=== PATIENT | female | born 1950 | race Caucasian/White ===

== ENCOUNTER 2017-05-09 12:33 | Day surgery (SDC) | payer OTHER ==
[2017-05-09] MEDS ORDERED: FENTAnyl 50 MCG/ML VIAL (15:01)
[2017-05-09] MEDS ORDERED: MIDAZOLAM 1 MG/ML 2 ML INJ ×2 (15:01)
== END 2017-05-09 16:46 | disposition home or self-care (01) ==
LOC: GIL 12:33
DX: Z12.11 Encounter for screening for malignant neoplasm of colon (principal); K64.8 Other hemorrhoids; D12.6 Benign neoplasm of colon, unspecified; I10 Essential (primary) hypertension
CPT/HCPCS: 45380; 88305